=== PATIENT | male | born 1995 | race Caucasian/White ===

== ENCOUNTER → 2017-01-24 | Outpatient (CLI) | payer OTHER ==
[~2017-01-24] VITALS: Ht 182.9 cm; Wt 79.4 kg
[~2017-01-24] MED LIST: CATHETER FLUSH 10 ML SYR IVP PRN; GADOBUTROL 7.5 MMOL/7.5 ML (GADAVIST) VIAL IV ONE; IOHEXOL 300 MG/ML 30 ML (OMNIPAQUE 300) VIAL IV ONE
[2017-01-24 10:30] VITALS: BP 112/67
[2017-01-24 10:55] VITALS: BP 110/68
--- NOTE | 2017-01-24 11:31 | Diagnostic Imaging Report ---
EXAMINATION: Fluoroscopic guided joint injection/arthrogram- right. INDICATION: Right shoulder pain, request for MR arthrogram of the shoulder is submitted. Fluoroscopy time: 28 seconds CONSENT: Informed consent was obtained from the patient. The risks, benefits, potential complications and alternatives were reviewed and all questions answered to the patient's satisfaction. PROCEDURE: After sterile preparation and draping, 1% lidocaine was utilized for local anesthesia. A 22 spinal needle is introduced into the glenohumeral joint under fluoroscopic guidance. After confirmation of proper positioning with intra-articular injection of, 12 ml of 1:150 concentration of Gadavist in normal saline is injected the into the joint. The patient tolerated the procedure well with no immediate complications. FINDINGS: Arthrogram demonstrates Normal distribution of contrast in the joint with no filling of the subacromial subdeltoid bursa seen. IMPRESSION: Successful fluoroscopic guided injection of diluted gadolinium into the right shoulder . MR arthrogram to follow. Dictated by: Dictated on workstation # [id number]
--- NOTE | 2017-01-24 15:50 | Diagnostic Imaging Report ---
Multiplanar, multisequence MRI of the right shoulder performed with intra-articular contrast. INDICATION: Right shoulder pain after injury with limited range of motion. FINDINGS: There is fluid distention of the glenohumeral joint seen on T2-weighted images. The T1-weighted images demonstrate isointense signal suggestive of less than optimal Gadolinium concentration in the injected mixture. The rotator cuff demonstrates intact supraspinatus, infraspinatus and subscapularis tendon. The long head biceps tendon is within its groove. There is increased signal seen along the deep portion of the superior segment of the labrum best seen on coronal images 10, 12 and 11 and poor definition of the labrum more posteriorly concerning for a SLAP tear. The suspected tear does not appear to extend into the long head biceps tendon although it is close to the area of the biceps anchor. Minimal cystic changes in the humeral head in the posterolateral aspect is seen with no significant bone marrow signal abnormality noted otherwise. The acromioclavicular joint appears unremarkable. The muscle bulk and signal appear unremarkable. IMPRESSION: Increased signal along the undersurface of the superior segment of the labrum concerning for a SLAP tear. Dictated by: Dictated on workstation # [id number]
== END ==
LOC: RAD 10:21
PROVIDERS: ATTEND Orthopaedic Surgery
DX: M25.511 Pain in right shoulder (principal)
CPT/HCPCS: 23350; 73040; 73222